=== PATIENT | female | born 1960 | race Caucasian/White ===

== ENCOUNTER 2016-08-19 10:32 | Emergency (ER) | payer MEDICARE, OTHER ==
[~2016-08-19 10:32] MED LIST: A/T/S 2% GEL30 GM; ACETAMINOPHEN; AEROBID INHALER7 GM; ALBUTEROL S2 MG/5 ML GT; ALBUTEROL S2 MG/5 ML PO; ALLERGY SHOTS; ATROVENT30 ML; BACID GT; BAZA ANTIFUNGAL57 GM TOP; BISACODYL10 MG/SUPP; CALAZIME P113 GM OI1 TOP; CALCIUM CIT-VI1 EACH GT; CALCIUM CITRAT1 EACH GT; CALCIUM CITRATE1 T12 PO; CALCIUM CITRATE1 T15 PO; CALCIUM+D GT; CALMOSEPTINE O3.5 GM TOP; CALMOSEPTINE O3.5 GM TP; CEROVITE GT; CERTA-VITE; CETAPHIL MOIST473 ML TOP; CETAPHIL240 ML EXT; CETAPHIL473 ML TP; CHRONULAC10 GM/151 PO; CITRACAL200 MG; CITRATE OF MAG296 M1 PO; CITRATE OF MAG300 ML GT; CITRATE OF MAG300 ML PO; CLOBETASOL PROP50 ML TP; CLOTRIMAZOLE/BE45 GM; COLACE; CRANBERRY TABL1 EACH GT; CRANBERRY TABL1 EACH PO; CRANBERRY300 MG PO; CRANBERRY450 M2 GT; DEPAKOTE SPRIN125 M1 DOB; DEPAKOTE SPRIN125 M1 GT; DEPAKOTE SPRIN125 MG GT; DEPAKOTE SPRIN125 MG PO; ERYGEL TP; ERYTHROMYCIN 2% TOP; FLUNISOLIDE25 ML; FLUNISOLIDE25 ML NS; FORTEO750 MCG/3 SUBQ; FORTICAL; HEMOCYTE-F TABL1 TAB GT; IBUPROFEN; K-DUR20 ME1 GT; K-DUR20 ME2 PEG; K-LOR HOSPITAL20 ME1 GT; KCL PO; KEPPRA GT; KEPPRA1000 MG GT; KEPPRA500 M1 PO; KEPPRA500 MG PO; KEPPRA750 MG; KEPPRA750 MG GT; KLOR-CON; KLOR-CON GT; LACTULOSE10 G/15 M1 GT; LACTULOSE10 G/15 M1 PO; LACTULOSE10 G/15 M2 GT; LACTULOSE10 G/15 M4 GT; LACTULOSE10 G/15 ML; LACTULOSE10 G/15 ML GT; LAMICTAL; LAMICTAL GT; LAMICTAL PO; LAMICTAL100 MG GT; LAMICTAL100 MG PO; LAMICTAL25 M1 PO; LEVAQUIN PO; LYRICA GT; LYRICA PO; LYRICA200 MG GT; LYRICA200 MG PO; LYRICA50 MG; LYRICA50 MG GT; LYRICA50 MG PO; MACROBID 100 M100 MG PO; MACRODANTIN50 MG GT; MACRODANTIN50 MG PO; MIACALCIN4 ML; MUCOMYST200 MG/ML; MULTI-VITAMIN1 TAB; NASALIDE INHALE25 ML; NASALIDE NS; NASONEX17 GM; NEXIUM GT; NEXIUM20 MG GT; NEXIUM20 MG PO; NITROFURANTOIN50 M1 PO; POTASSIUM CHLOR GT; PREVACID; PREVACID GT; PRILOSEC20 M1 PO; PROBIOTIC1 EACH PO; REGLAN; ROBITUSSIN PO; SENNA CONCENTR8.6 MG GT; SENNA8.6 M2 PO; SENOKOT TO GO8.6 MG GT; SINGULAIR; SINGULAIR GT; SINGULAIR PO; SOD BICARBONATE; SODIUM CHLORI1000 ML INJ; TEMOVATE 0.05%15 G1 TOP; TEMOVATE E TOP; TEMOVATE15 GM TP; TOPAMAX; VIMPAT100 MG GT; VIMPAT150 MG PO; VIMPAT50 MG PO; VITAMIN C GT; VITAMIN D 4001 UDTAB GT; VITAMIN D1000 UNI1 GT; VITAMIN D1000 UNI1 PO; VITAMIN D1000 UNI2 GT; VITAMIN D1000 UNIT PO; [UNRECOGNIZED DRUG - OTHER]; [UNRECOGNIZED DRUG - OTHER]; [UNRECOGNIZED DRUG - OTHER] TOP; [UNRECOGNIZED DRUG - OTHER] TOP; [UNRECOGNIZED DRUG - OTHER] TP; [UNRECOGNIZED DRUG - OTHER] TP; [UNRECOGNIZED DRUG - OTHER] TP
[2016-10-24] MEDS ORDERED: KEPPRA1000 MG PEG (07:50)
[2016-10-24] MEDS ORDERED: LAMICTAL100 MG PEG (07:51)
[2016-10-24] MEDS ORDERED: DEPAKOTE SPRIN125 M1 PEG (07:52)
[2016-10-24] MEDS ORDERED: LYRICA50 MG PEG (07:53)
[2016-10-24] MEDS ORDERED: LYRICA25 MG PEG (07:54)
[2016-10-24] MEDS ORDERED: CHRONULAC10 GM/15 M PEG (07:55)
[2016-10-24] MEDS ORDERED: CALCIUM CIT-VI1 EACH PEG (07:57)
[2016-10-24] MEDS ORDERED: FLUNISOLIDE25 ML (07:58)
[2016-10-24] MEDS ORDERED: [UNRECOGNIZED DRUG - OTHER] TOP (07:59)
[2016-10-24] MEDS ORDERED: [UNRECOGNIZED DRUG - OTHER] TOP (08:01)
[2016-10-24] MEDS ORDERED: OMEPRAZOLE20 M1 PEG (08:02)
[2016-10-24] MEDS ORDERED: SENNA-LAX8.6 M1 PEG (08:03)
[2016-10-24] MEDS ORDERED: CLOBETASOL 0.0560 GM TOP (08:04)
[2016-10-24] MEDS ORDERED: MAGNESIUM CITR100 MG PEG (08:06)
[2016-10-24] MEDS ORDERED: VIMPAT200 MG PEG (08:08)
[2016-10-24] MEDS ORDERED: BAZA CLEANSE & P4 GM TOP (08:09)
[2016-10-24] MEDS ORDERED: MAGIC TOP (08:11)
[2016-10-24] MEDS ORDERED: RISAMINE OINTM113 GM TOP (08:12)
[2016-10-24] MEDS ORDERED: ALBUTEROL S2 MG/5 ML PEG (08:14)
[2016-10-24] MEDS ORDERED: VITAMIN D1000 UNI1 PEG (08:15)
[2016-10-24] MEDS ORDERED: POTASSIUM20 MEQ/11 PEG (08:17)
[2016-10-24] MEDS ORDERED: SINGULAIR PEG (08:18)
[2016-10-24] MEDS ORDERED: CRANBERRY450 M2 PEG (08:18)
[2016-10-24] MEDS ORDERED: ZYRTEC10 M1 PEG (08:19)
== END 2016-08-19 12:59 | disposition home or self-care (01) ==
LOC: CED 10:32
DX: L03.311 Cellulitis of abdominal wall (principal); Z88.2 Allergy status to sulfonamides; Z88.1 Allergy status to other antibiotic agents; Z88.8 Allergy status to other drugs, medicaments and biological substances; Z79.899 Other long term (current) drug therapy
CPT/HCPCS: 99283

== ENCOUNTER → 2016-09-17 | Outpatient (CLI) | payer MEDICARE, OTHER ==
[~2016-09-17] MED LIST changes: +ALBUTEROL S2 MG/5 ML PEG; +BAZA CLEANSE & P4 GM TOP; +CALCIUM CIT-VI1 EACH PEG; +CHRONULAC10 GM/15 M PEG; +CLOBETASOL 0.0560 GM TOP; +CRANBERRY450 M2 PEG; +DEPAKOTE SPRIN125 M1 PEG; +KEPPRA1000 MG PEG; +LAMICTAL100 MG PEG; +LYRICA25 MG PEG; +LYRICA50 MG PEG; +MAGIC TOP; +MAGNESIUM CITR100 MG PEG; +OMEPRAZOLE20 M1 PEG; +POTASSIUM20 MEQ/11 PEG; +RISAMINE OINTM113 GM TOP; +SENNA-LAX8.6 M1 PEG; +SINGULAIR PEG; +VIMPAT200 MG PEG; +VITAMIN D1000 UNI1 PEG; +ZYRTEC10 M1 PEG; +[UNRECOGNIZED DRUG - OTHER] TOP; +[UNRECOGNIZED DRUG - OTHER] TOP
== END | disposition home or self-care (01) ==
LOC: CRAD 10:10
DX: R13.10 Dysphagia, unspecified (principal)
CPT/HCPCS: 74230; 92611; G8996-GN; G8997-GN; G8998-GN

== ENCOUNTER → 2016-10-24 | Day surgery (SDC) | payer MEDICARE, OTHER ==
--- NOTE | ~2016-10-24 | OR ---
Unit #: [id number] #: [id number] Patient: AVELINO PEREA [id number] [address] [place], [place] [address] [id number] MR#: [id number] NAME: AVELINO PEREA ROOM: Date of Procedure: 10/24/2016 Admission Date: 10/24/2016 Surgeon: Chago Holley M.D. : 1960 Attending Physician: Chago Holley M.D. Referring Physician: Chago Holley M.D. Primary Care Physician: Corby Romo Sr., M.D. OPERATIVE REPORT PREOPERATIVE DIAGNOSES The patient had multiple PEG tubes placed in different hospitals and different institutions over the past few years. She has high-grade dysphagia, which is oropharyngeal in origin and underlying intellectual disability. 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 Therefore, there is no way to fix this problem. As a result, discussion was held with Dr. Romo and it was decided to remove the old tube and put a new PEG tube in place. PROCEDURES PERFORMED Upper gastrointestinal endoscopy and PEG placement. A new 24-Burund[place] PEG tube was placed adjacent to the old tube and the old tube was removed. RECOMMENDATIONS It is possible the patient may have minimal leakage from the old tube site, which should resolve very quickly as the fistula has already collapsing. The new tube can be used for medications and PEG feeds as needed. SEDATION USED MAC. DESCRIPTION OF PROCEDURE Following detailed explanation of the potential risks and complications of an upper endoscopy and a PEG placement namely perforation, bleeding, and complications related to sedation, the patient was brought to GI lab and laid in the supine position with head of the bed elevated. Lubricated tip of the Olympus video upper endoscope was passed through the bite block into the proximal esophagus under direct vision. The entire esophageal mucosa was examined and appeared normal. Z-line was nicely demarcated, there being no esophagitis or hiatus hernia. The scope was then advanced into the gastric cavity and the latter was insufflated. Mucosa of the fundus, body, and antrum was examined and appeared unremarkable. Pylorus was intubated with visualization of the normal duodenal bulb and second and third part of the duodenum. Upon withdrawal and retroflexion, incisura, cardia, and greater curve examined and no additional findings noted. The PEG site was then identified using transillumination and finger indentation adjacent to the old PEG site. The area was cleaned and draped with Betadine and 1% lidocaine infiltrative anesthesia was given. A small stab wound was made. Using Seldinger technique, guidewire was placed in the gastric cavity. The latter was then grasped using a Unit #: [id number] #: [id number] Patient: ELIAZARAVELINO polypectomy snare and brought out through the oral cavity. A 20-Burundian PEG tube was railroaded over the guidewire and brought out through the stab incision. The appropriate feeding attachments and securing device were applied. Relook endoscopy showed an excellent position in the inner mushroom of the PEG tube. The appropriate feeding access was applied and abdominal binder was placed. The old PEG tube was then removed after deflating the balloon and the area was cleaned and dressed. The patient was then taken to the recovery area. She tolerated the procedure without any postprocedure complications. Dictated by... Erin Yen/jake TD: 10/24/2016 14:41 JOB #: [id number] CC: Corby Romo Sr., M.D. OPERATIVE REPORT Page 1 of 1 X Chago Holley MD PROCEDURE OPERATIVE NOTE
== END | disposition home or self-care (01) ==
LOC: COPS 06:59
DX: K94.22 Gastrostomy infection (principal); M81.0 Age-related osteoporosis without current pathological fracture; Z87.440 Personal history of urinary (tract) infections; Z88.1 Allergy status to other antibiotic agents; Z88.2 Allergy status to sulfonamides; Z88.8 Allergy status to other drugs, medicaments and biological substances; Z79.899 Other long term (current) drug therapy; Y83.3 Surgical operation with formation of external stoma as the cause of abnormal reaction of the patient, or of later complication, without mention of misadventure at the time of the procedure
CPT/HCPCS: J0690